=== PATIENT | female | born 1970 | race Hispanic/Latino ===

== ENCOUNTER 2018-06-05 08:28 | Emergency (ER) | payer SELFPAY ==
--- NOTE | 2018-06-05 10:19 | CT ---
CT BRAIN WITHOUT CONTRAST: Date: 06/05/18 HISTORY: Left-sided headache, fell out of bed last night. FINDINGS: No evidence of infarct, hemorrhage, midline shift, or abnormal extra-axial fluid collections are seen . The ventricular size is normal and the basilar cisterns are patent. The bony calvarium is intact. T he visualized paranasal sinuses and mastoid air cells are well aerated. IMPRESSION: No CT evidence of acute intracranial process. POS: [facility]
--- NOTE | 2018-06-05 10:44 | CT ---
CT CERVICAL SPINE NONCONTRAST: HISTORY: 48-year-old female status post acute cervical trauma from fall. FINDINGS: Alignment is normal. The vertebral body heights are maintained. Disc spaces are maintained. There is no evidence of acute fracture. There is no evidence of high grade central spinal canal stenosis or hi gh grade neural foraminal stenosis. There are no high grade degenerative facet changes. There is no prevertebral soft tissue swelling. 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 There are multiple surgical c lips around the proximal trachea. IMPRESSION: 1. Essentially normal cervical spine. 2. Status post thyroidectomy. jn[] POS: [facility]
--- NOTE | 2018-06-05 10:46 | RAD ---
CHEST 1 VIEW PORTABLE: Date: 06/05/18 HISTORY: Left-sided head pain after falling out of bed last night. Fell on left side of body and hit head. Lef t-sided rib pain. FINDINGS: Heart size is within normal limits. The lungs are clear. No confluent pneumonia, overt edema, or pleu ral effusion. IMPRESSION: No significant acute intrathoracic disease. Prominent thoracic spine spondylosis. No pneumothorax or pleural effusion. POS: [facility]
--- NOTE | 2018-06-05 10:47 | RAD ---
RADIOGRAPH PELVIS 1 VIEW: Date: 06/05/18 HISTORY: 48-year-old female with traumatic left hip pain after fall. FINDINGS: The pelvic ring appears to be intact with no evidence of grossly displaced fracture. There is no disl ocation. No high grade DJD of the bilateral hips or SI joints. There is a cluster of surgical clips p rojecting over the region between the right side of L5 and the superior aspect of the right sacral al a. IMPRESSION: No evidence of fracture. POS: [facility]
[2018-06-05] MEDS ORDERED: Acetaminophen 500 MG TAB ONE (11:11)
[2018-06-05] MEDS ORDERED: Ibuprofen 800 MG TAB ONE (11:11)
== END 2018-06-05 11:14 | disposition home or self-care (01) ==
LOC: ERS 08:28
DX: S00.03XA Contusion of scalp, initial encounter (principal); I10 Essential (primary) hypertension; F41.9 Anxiety disorder, unspecified; F32.9 Major depressive disorder, single episode, unspecified; W06.XXXA Fall from bed, initial encounter
CPT/HCPCS: 70450; 71045; 72125; 72170